=== PATIENT | female | born 1985 | race Caucasian/White ===

== ENCOUNTER → 2017-11-18 | Outpatient (CLI) | payer OTHER ==
[2017-11-18 13:38] LABS: BASO % 0.1 %; BASO ABS # 0.01 K/uL (0-0.2); EOS % 0.3 %; EOS ABS # 0.02 K/uL (0-0.5); HEMATOCRIT 39.8 % (37-47); IG# 0.02 K/uL (0.00-0.02); LYMPH ABS # 1.94 K/uL (1.2-3.4); MEAN CELL VOLUME 94.3 fL (80-100); MEAN CORPUSCULAR HEMOGLOBIN 33.2 pg (25-34); MEAN CORPUSCULAR HGB CONC 35.2 g/dl (32-36); MEAN PLATELET VOLUME 9.9 fL (7.4-10.4); MONO % 6.1 %; MONO ABS # 0.42 K/uL (0.11-0.59); NEUT % 65.2 %; NEUT ABS # 4.52 K/uL (1.4-6.5); PLATELET COUNT 210 K/uL (130-400); RED CELL DISTRIBUTION WIDTH CV 11.9 % (11.5-14.5); RED CELL DISTRIBUTION WIDTH SD 40.2 fL (36.4-46.3); WHITE BLOOD COUNT 6.93 K/uL (4.8-10.8)
[2017-11-18 17:52] LABS: ALBUMIN 3.9 gm/dl (3.4-5.0); ALT/SGPT 18 U/L (12-78); AST/SGOT 17 U/L (15-37); BLOOD UREA NITROGEN 10 mg/dl (7-18); CALCIUM 9.3 mg/dl (8.5-10.1); CARBON DIOXIDE 27 mmol/L (21-32); CREATININE 0.86 mg/dl (0.60-1.20); GLUCOSE 122 mg/dl (70-99); POTASSIUM 3.6 mmol/L (3.5-5.1); SODIUM 133 mmol/L (136-145)
[2017-11-18 18:04] LABS: ALKALINE PHOSPHATASE 53 U/L (45-117); CHOLESTEROL 176 mg/dl (0-200); LDL CHOLESTEROL CALCULATED 96 mg/dl
== END | disposition home or self-care (01) ==
LOC: C.LABBC 12:19
PROVIDERS: ATTEND Neuromusculoskeletal Medicine & OMM
DX: K58.9 Irritable bowel syndrome, unspecified (principal); Z86.2 Personal history of diseases of the blood and blood-forming organs and certain disorders involving the immune mechanism; E03.9 Hypothyroidism, unspecified

== ENCOUNTER → 2017-11-25 | Outpatient (CLI) | payer OTHER ==
--- NOTE | 2017-11-25 12:37 | DIAGNOSTIC IMAGING REPORT ---
LEG LENGTH STUDY (WHOLE LEG) HISTORY: 31 years-old Female M54.5 Low back painQ72.819 Shortening, leg, congenital COMPARISON: None available TECHNIQUE: 5 radiographic images of the bilateral lower extremities were obtained for a leg length study FINDINGS: The right lower extremity measured from the femoral head to the mid tibial plafond and measures 82.6 cm. The left lower extremity measured from the femoral head to the mid tibial plafond measures 82.0 cm. There is no significant joint space narrowing or focal acute bony abnormality identified. IMPRESSION: The right lower extremity measures 6 mm longer than the left. The above report was generated using voice recognition software. It may contain grammatical, syntax or spelling errors. Electronically signed by: Jose Davalos M.D. 11/25/2017 12:36 PM Dictated Date/Time: 11/25/2017 12:31 PM
== END | disposition home or self-care (01) ==
LOC: C.RADBC 12:06
PROVIDERS: ATTEND Neuromusculoskeletal Medicine & OMM
DX: M54.5 Low back pain (principal); Q72.819 Congenital shortening of unspecified lower limb